=== PATIENT | male | born 1945 | race Caucasian/White ===

== ENCOUNTER 2017-01-27 18:35 | Emergency (ER) | payer MEDICARE, OTHER ==
[~2017-01-27] VITALS: Ht 172.7 cm; Wt 108.4 kg
[~2017-01-27 18:35] MED LIST: ALLO300T2; DIGO0.1262; EPLE50TA9 PO; GLIP-110 PO; INSUINJ49 SC; IRONTAB35 PO; ISOS10TA14 PO; MAGN400C3 PO; POTA-167 PO; SOTA80TA PO; TORS20TA20 PO
[2017-01-27 19:03] VITALS: BP 105/54
[2017-01-27 19:49] LABS: Basophils # (auto) 0 uL; Basophils % (auto) 0.4 % (0.0-2.0); Eosinophils # (auto) 0.3 uL; Hematocrit 45.3 % (41.0-53.0); Hemoglobin 15.3 g/dL (13.5-17.5); Lymphocytes # (auto) 1.9 uL; Lymphocytes % (auto) 20.8 % (10.0-50.0); Mean Corpuscular Hemoglobin 32.4 pg (28.0-32.0); Mean Corpuscular Hgb Conc. 33.7 g/dL (32.0-36.0); Mean Corpuscular Volume 96.1 fL (80.0-100.0); Mean Platelet Volume 11.2 fL (7.4-10.4); Monocytes # (auto) 0.7 uL; Monocytes % (auto) 7.8 % (0.0-12.0); Neutrophils # (auto) 6.2 uL; Platelet Count (auto) 151 10^3/uL (140-450); Red Cell Distribution Width 13.8 % (11.6-16.0); White Blood Cell 9.2 10^3/uL (4.4-10.8)
[2017-01-27 20:04] LABS: Albumin 3.8 g/dL (3.4-5.0); BUN/Creatinine Ratio 28.6; Bilirubin, Total 1.2 mg/dL (0.2-1.0); Calcium 8.9 mg/dL (8.5-10.1); Potassium 3.8 mmol/L (3.5-5.1)
== END 2017-01-27 20:57 | disposition left against medical advice (07) ==
LOC: ER 18:39
DX: R53.1 Weakness (principal); R51 Headache; Z53.21 Procedure and treatment not carried out due to patient leaving prior to being seen by health care provider
CPT/HCPCS: 36415; 70450; 80053; 82962; 84484; 85025; 93005

== ENCOUNTER → 2017-02-21 | Outpatient (CLI) | payer MEDICARE, OTHER ==
[~2017-02-21] VITALS: Ht 1 cm; Wt 0.5 kg
[~2017-02-21] MED LIST changes: +MAGNESIUM SULFATE 1GM/100ML 100 ML IV ONE; +MAGNESIUM SULFATE 1GM/100ML 100 ML IV SCH; +MAGNESIUM SULFATE 1GM/100ML 200 ML IV ONE; +SODIUM CHLORIDE 0.9% 500 ML IV SCH
[2017-02-21 16:00] VITALS: BP 99/62
[2017-02-21 17:50] VITALS: BP 94/51
== END | disposition home or self-care (01) ==
LOC: CHF HDHVI 16:04
PROVIDERS: ATTEND Internal Medicine Cardiovascular Disease
DX: E86.0 Dehydration (principal); I25.10 Atherosclerotic heart disease of native coronary artery without angina pectoris; R19.7 Diarrhea, unspecified; E83.42 Hypomagnesemia
CPT/HCPCS: 96365; G0463; J3475; 96360; 96361; 96367

== ENCOUNTER → 2017-02-22 | Outpatient (CLI) | payer MEDICARE, OTHER ==
[~2017-02-22] VITALS: Ht 165.1 cm; Wt 106.1 kg
[~2017-02-22] MED LIST changes: -MAGNESIUM SULFATE 1GM/100ML 100 ML IV ONE; +MVI in SODIUM CHLORIDE 0.9% 1,010 ML IV ONE; +MVI in SODIUM CHLORIDE 0.9% 1,010 ML ONE; -SODIUM CHLORIDE 0.9% 500 ML IV SCH
[2017-02-22 15:25] VITALS: BP 96/56
== END | disposition home or self-care (01) ==
LOC: CHF HDHVI 11:04
PROVIDERS: ATTEND Internal Medicine Cardiovascular Disease
DX: I11.0 Hypertensive heart disease with heart failure (principal); I50.9 Heart failure, unspecified; D64.9 Anemia, unspecified
CPT/HCPCS: 96361; 96365; 96367; G0463; J3411; J3475; 96360

== ENCOUNTER → 2017-03-01 | Outpatient (CLI) | payer MEDICARE, OTHER ==
[~2017-03-01] MED LIST changes: +MAGNESIUM SULFATE 1GM/100ML 100 ML IV ONE; -MAGNESIUM SULFATE 1GM/100ML 100 ML IV SCH; -MVI in SODIUM CHLORIDE 0.9% 1,010 ML IV ONE; -MVI in SODIUM CHLORIDE 0.9% 1,010 ML ONE; +SODIUM CHLORIDE 0.9% 1,000 ML IV SCH
[2017-03-01 12:45] VITALS: BP 98/56
[2017-03-01 16:30] VITALS: BP 120/61
== END | disposition home or self-care (01) ==
LOC: CHF HDHVI 12:40
PROVIDERS: ATTEND Internal Medicine Cardiovascular Disease
DX: I11.0 Hypertensive heart disease with heart failure (principal); I50.9 Heart failure, unspecified; D64.9 Anemia, unspecified; I25.10 Atherosclerotic heart disease of native coronary artery without angina pectoris; R53.1 Weakness
CPT/HCPCS: 96365; 96366; G0463; J3475; 96360; 96361

== ENCOUNTER → 2017-03-11 | Outpatient (CLI) | payer MEDICARE, OTHER ==
[~2017-03-11] MED LIST changes: -MAGNESIUM SULFATE 1GM/100ML 200 ML IV ONE; +SODIUM CHLORIDE 0.9% 1,000 ML IV ONE; -SODIUM CHLORIDE 0.9% 1,000 ML IV SCH
[2017-03-11 12:15] VITALS: BP 98/45
[2017-03-11 15:40] VITALS: BP 101/56
[2017-03-11 17:03] LABS: BUN/Creatinine Ratio 17.1; Calcium 8.9 mg/dL (8.5-10.1); Magnesium 2.2 mg/dL (1.6-2.6); Potassium 3.8 mmol/L (3.5-5.1)
== END | disposition home or self-care (01) ==
LOC: CHF HDHVI 12:22
PROVIDERS: ATTEND Internal Medicine Cardiovascular Disease
DX: E11.9 Type 2 diabetes mellitus without complications (principal); I10 Essential (primary) hypertension; E83.42 Hypomagnesemia
CPT/HCPCS: 36415; 80048; 83036; 83735

== ENCOUNTER → 2017-09-20 | Outpatient (CLI) | payer MEDICARE ==
[~2017-09-20] MED LIST changes: +ADENOSINE 88 MG in GIVE UN-DILUTED 0 ML IV ONE; +ADENOSINE 90 MG/30 ML INJ IV ONE; -MAGNESIUM SULFATE 1GM/100ML 100 ML IV ONE; -SODIUM CHLORIDE 0.9% 1,000 ML IV ONE
== END | disposition home or self-care (01) ==
LOC: Rad HDHVI 09:29
PROVIDERS: ATTEND Internal Medicine Cardiovascular Disease
DX: I36.1 Nonrheumatic tricuspid (valve) insufficiency (principal); E11.9 Type 2 diabetes mellitus without complications; I25.5 Ischemic cardiomyopathy; I50.23 Acute on chronic systolic (congestive) heart failure; F03.90 Unspecified dementia, unspecified severity, without behavioral disturbance, psychotic disturbance, mood disturbance, and anxiety; K52.9 Noninfective gastroenteritis and colitis, unspecified; Z95.1 Presence of aortocoronary bypass graft
CPT/HCPCS: 78452; 93005; 93306; 96374; 96375; A9500; J0153

== ENCOUNTER → 2018-04-26 | Outpatient (CLI) | payer MEDICARE ==
[~2018-04-26] MED LIST changes: -ADENOSINE 88 MG in GIVE UN-DILUTED 0 ML IV ONE; -ADENOSINE 90 MG/30 ML INJ IV ONE
[2018-04-26 16:03] LABS: Urine Bacteria NONE SEEN /hpf (None Seen); Urine Blood Negative /uL (Negative); Urine Hyaline Cast FEW /lpf (0 - 2); Urine Specific Gravity 1.007 (1.001-1.035); Urine WBC <1 /hpf (0 - 3)
[2018-04-26 16:11] LABS: BUN/Creatinine Ratio 24.2; Calcium 9.5 mg/dL (8.5-10.1); Magnesium 1.9 mg/dL (1.6-2.6); Potassium 4.2 mmol/L (3.5-5.1)
== END | disposition home or self-care (01) ==
LOC: LAB 13:07
PROVIDERS: ATTEND Internal Medicine Cardiovascular Disease
DX: E83.40 Disorders of magnesium metabolism, unspecified (principal); I10 Essential (primary) hypertension; N39.0 Urinary tract infection, site not specified
CPT/HCPCS: 36415; 80048; 81001; 83735; 87086

== ENCOUNTER → 2018-06-13 | Outpatient (CLI) | payer MEDICARE | END | disposition home or self-care (01) | LOC: LAB 11:15 | PROVIDERS: ATTEND Internal Medicine Cardiovascular Disease | DX: D68.62 Lupus anticoagulant syndrome (principal); Z79.899 Other long term (current) drug therapy; Z88.0 Allergy status to penicillin; Z88.8 Allergy status to other drugs, medicaments and biological substances | CPT/HCPCS: 85613; 85670; 85705; 85732 ==

== ENCOUNTER → 2018-09-27 | Outpatient (CLI) | payer MEDICARE | END | disposition home or self-care (01) | LOC: Rad HDHVI 15:26 | PROVIDERS: ATTEND Internal Medicine Cardiovascular Disease | DX: Z01.810 Encounter for preprocedural cardiovascular examination (principal); I35.1 Nonrheumatic aortic (valve) insufficiency; R07.89 Other chest pain; I25.5 Ischemic cardiomyopathy; E11.9 Type 2 diabetes mellitus without complications; I11.0 Hypertensive heart disease with heart failure; I50.9 Heart failure, unspecified; Z95.1 Presence of aortocoronary bypass graft | CPT/HCPCS: 93306 ==

== ENCOUNTER → 2018-10-10 | Outpatient (CLI) | payer MEDICARE | END | disposition home or self-care (01) | LOC: LAB 12:23 | PROVIDERS: ATTEND Internal Medicine Cardiovascular Disease | DX: E29.1 Testicular hypofunction (principal); C61 Malignant neoplasm of prostate; E03.9 Hypothyroidism, unspecified | CPT/HCPCS: 36415; 84153; 84403; 84443 ==

== ENCOUNTER → 2019-10-01 | Outpatient (CLI) | payer MEDICARE ==
[~2019-10-01] MED LIST changes: +EPLE50TA3 PO; -EPLE50TA9 PO
== END | disposition home or self-care (01) ==
LOC: Rad HDHVI 10:19
PROVIDERS: ATTEND Internal Medicine Cardiovascular Disease
DX: J32.0 Chronic maxillary sinusitis (principal); G31.9 Degenerative disease of nervous system, unspecified; I99.8 Other disorder of circulatory system
CPT/HCPCS: 70450

== ENCOUNTER → 2019-12-10 | Outpatient (CLI) | payer MEDICARE ==
[2019-12-10 15:55] VITALS: BP_SYST 106; BP_SYST 116; BP_DIAS 55
--- NOTE | 2019-12-10 15:55 | NUR ---
Signature Attestation Statement: I ANGELY ROTH performed this procedure EECP on this patient. Addendum: 12/10/19 at 1555 by ANGELY ROTH [email or web address] Amended: Links added.
--- NOTE | 2019-12-10 15:56 | NUR ---
Signature Attestation Statement: I ANGELY ROTH performed this procedure EECP on this patient. Addendum: 12/10/19 at 1557 by ANGELY ROTH [email or web address] Amended: Links added.
--- NOTE | 2019-12-10 15:56 | NUR ---
Signature Attestation Statement: I ANGELY ROTH performed this procedure EECP on this patient. Addendum: 12/10/19 at 1556 by ANGELY ROTH [email or web address] Amended: Links added.
--- NOTE | 2019-12-10 16:04 | NUR ---
Signature Attestation Statement: I ANGELY ROTH performed this procedure EECP on this patient. Addendum: 12/10/19 at 1605 by ANGELY ROTH [email or web address] Amended: Links added.
== END | disposition home or self-care (01) ==
LOC: CHF HDHVI 13:34
PROVIDERS: ATTEND Internal Medicine Cardiovascular Disease
DX: E11.42 Type 2 diabetes mellitus with diabetic polyneuropathy (principal); I50.32 Chronic diastolic (congestive) heart failure; R81 Glycosuria; I48.91 Unspecified atrial fibrillation; Z95.1 Presence of aortocoronary bypass graft; Z98.61 Coronary angioplasty status; Z95.0 Presence of cardiac pacemaker; I25.708 Atherosclerosis of coronary artery bypass graft(s), unspecified, with other forms of angina pectoris
CPT/HCPCS: G0166

== ENCOUNTER → 2019-12-14 | Outpatient (CLI) | payer MEDICARE ==
[2019-12-14 14:19] VITALS: BP 126/70
[2019-12-14 14:42] VITALS: BP 112/64
== END | disposition home or self-care (01) ==
LOC: CHF HDHVI 13:15
PROVIDERS: ATTEND Internal Medicine Cardiovascular Disease
DX: I25.708 Atherosclerosis of coronary artery bypass graft(s), unspecified, with other forms of angina pectoris (principal); I50.9 Heart failure, unspecified; E11.9 Type 2 diabetes mellitus without complications; I25.2 Old myocardial infarction; G47.33 Obstructive sleep apnea (adult) (pediatric); E66.01 Morbid (severe) obesity due to excess calories; Z95.5 Presence of coronary angioplasty implant and graft; Z95.1 Presence of aortocoronary bypass graft; Z95.2 Presence of prosthetic heart valve
CPT/HCPCS: G0166

== ENCOUNTER → 2019-12-17 | Outpatient (CLI) | payer MEDICARE ==
[2019-12-17 14:47] VITALS: BP 87/52
--- NOTE | 2019-12-17 14:47 | NUR ---
Signature Attestation Statement: I ANGELY ROTH performed this procedure EECP on this patient. Addendum: 12/17/19 at 1447 by ANGELY ROTH [email or web address] Amended: Links added.
--- NOTE | 2019-12-17 14:48 | NUR ---
Signature Attestation Statement: I ANGELY ROTH performed this procedure EECP on this patient. Addendum: 12/17/19 at 1448 by ANGEYL ROTH [email or web address] Amended: Links added.
[2019-12-17 15:11] VITALS: BP 96/57
--- NOTE | 2019-12-17 15:11 | NUR ---
Signature Attestation Statement: I ANGELY ROTH performed this procedure EECP on this patient. Addendum: 12/17/19 at 1511 by ANGELY ROTH [email or web address] Amended: Links added.
--- NOTE | 2019-12-17 15:12 | NUR ---
Signature Attestation Statement: I ANGELY ROTH performed this procedure EECP on this patient. Addendum: 12/17/19 at 1512 by ANGELY ROTH [email or web address] Amended: Links added.
== END | disposition home or self-care (01) ==
LOC: CHF HDHVI 13:45
PROVIDERS: ATTEND Internal Medicine Cardiovascular Disease
DX: I11.0 Hypertensive heart disease with heart failure (principal); I50.23 Acute on chronic systolic (congestive) heart failure; E11.21 Type 2 diabetes mellitus with diabetic nephropathy; E11.42 Type 2 diabetes mellitus with diabetic polyneuropathy; E11.319 Type 2 diabetes mellitus with unspecified diabetic retinopathy without macular edema; E11.52 Type 2 diabetes mellitus with diabetic peripheral angiopathy with gangrene; I25.5 Ischemic cardiomyopathy; P08.0 Exceptionally large newborn baby; A07.9 Protozoal intestinal disease, unspecified; I25.2 Old myocardial infarction; I25.708 Atherosclerosis of coronary artery bypass graft(s), unspecified, with other forms of angina pectoris; D57.3 Sickle-cell trait; R82.998 Other abnormal findings in urine; D60.9 Acquired pure red cell aplasia, unspecified; J44.9 Chronic obstructive pulmonary disease, unspecified; R79.9 Abnormal finding of blood chemistry, unspecified; Z86.73 Personal history of transient ischemic attack (TIA), and cerebral infarction without residual deficits; Z98.61 Coronary angioplasty status; Z95.1 Presence of aortocoronary bypass graft
CPT/HCPCS: G0166

== ENCOUNTER → 2019-12-19 | Outpatient (CLI) | payer MEDICARE ==
[2019-12-19 14:24] VITALS: BP 96/58
[2019-12-19 15:14] VITALS: BP 94/60
[2019-12-19 15:15] VITALS: BP 94/60
== END | disposition home or self-care (01) ==
LOC: CHF HDHVI 13:27
PROVIDERS: ATTEND Internal Medicine Cardiovascular Disease
DX: I25.708 Atherosclerosis of coronary artery bypass graft(s), unspecified, with other forms of angina pectoris (principal); E11.21 Type 2 diabetes mellitus with diabetic nephropathy; E11.42 Type 2 diabetes mellitus with diabetic polyneuropathy; E11.319 Type 2 diabetes mellitus with unspecified diabetic retinopathy without macular edema; I50.23 Acute on chronic systolic (congestive) heart failure; I25.5 Ischemic cardiomyopathy; I73.9 Peripheral vascular disease, unspecified; Z86.73 Personal history of transient ischemic attack (TIA), and cerebral infarction without residual deficits; Z95.5 Presence of coronary angioplasty implant and graft; Z95.1 Presence of aortocoronary bypass graft
CPT/HCPCS: G0166

== ENCOUNTER → 2019-12-21 | Outpatient (CLI) | payer MEDICARE ==
[2019-12-21 15:02] VITALS: BP 102/61
[2019-12-21 15:04] VITALS: BP 106/64
== END | disposition home or self-care (01) ==
LOC: CHF HDHVI 13:43
PROVIDERS: ATTEND Internal Medicine Cardiovascular Disease
DX: I25.708 Atherosclerosis of coronary artery bypass graft(s), unspecified, with other forms of angina pectoris (principal); E11.21 Type 2 diabetes mellitus with diabetic nephropathy; E11.42 Type 2 diabetes mellitus with diabetic polyneuropathy; E11.319 Type 2 diabetes mellitus with unspecified diabetic retinopathy without macular edema; I50.23 Acute on chronic systolic (congestive) heart failure; I50.1 Left ventricular failure, unspecified; I25.5 Ischemic cardiomyopathy; I73.9 Peripheral vascular disease, unspecified; R68.89 Other general symptoms and signs; Z98.61 Coronary angioplasty status; Z95.1 Presence of aortocoronary bypass graft; Z86.73 Personal history of transient ischemic attack (TIA), and cerebral infarction without residual deficits
CPT/HCPCS: G0166

== ENCOUNTER → 2019-12-24 | Outpatient (CLI) | payer MEDICARE ==
[~2019-12-24] MED LIST changes: +IOHEXOL 300 MG/ML 100ML BOTTLE IJ ONE; +LIDOCAINE 2%HCL (LOCAL ANESTH.) INJ 20ML MDV ONE
[2019-12-24 14:03] VITALS: BP 109/69
--- NOTE | 2019-12-24 14:03 | NUR ---
Signature Attestation Statement: I ANGELY ROTH performed this procedure EECP on this patient. Addendum: 12/24/19 at 1403 by ANGELY ROTH [email or web address] Amended: Links added.
--- NOTE | 2019-12-24 14:18 | NUR ---
Signature Attestation Statement: I ANGELY ROTH performed this procedure EECP on this patient. Addendum: 12/24/19 at 1418 by ANGELY ROTH [email or web address] Amended: Links added.
[2019-12-24 14:34] VITALS: BP 111/62
--- NOTE | 2019-12-24 14:34 | NUR ---
Signature Attestation Statement: I ANGELY ROTH performed this procedure EECP on this patient. Addendum: 12/24/19 at 1434 by ANGELY ROTH [email or web address] Amended: Links added.
--- NOTE | 2019-12-24 14:49 | NUR ---
Signature Attestation Statement: I ANGELY ROTH performed this procedure EECP on this patient. Addendum: 12/24/19 at 1450 by ANGELY ROTH [email or web address] Amended: Links added.
== END | disposition home or self-care (01) ==
LOC: CHF HDHVI 13:33
PROVIDERS: ATTEND Internal Medicine Cardiovascular Disease
DX: I50.23 Acute on chronic systolic (congestive) heart failure (principal); I25.5 Ischemic cardiomyopathy; E11.21 Type 2 diabetes mellitus with diabetic nephropathy; E11.42 Type 2 diabetes mellitus with diabetic polyneuropathy; E11.319 Type 2 diabetes mellitus with unspecified diabetic retinopathy without macular edema; I73.9 Peripheral vascular disease, unspecified; I20.9 Angina pectoris, unspecified; Z86.73 Personal history of transient ischemic attack (TIA), and cerebral infarction without residual deficits; Z95.5 Presence of coronary angioplasty implant and graft; Z95.1 Presence of aortocoronary bypass graft
CPT/HCPCS: G0166

== ENCOUNTER → 2019-12-26 | Outpatient (CLI) | payer MEDICARE ==
[~2019-12-26] MED LIST changes: -IOHEXOL 300 MG/ML 100ML BOTTLE IJ ONE; -LIDOCAINE 2%HCL (LOCAL ANESTH.) INJ 20ML MDV ONE
[2019-12-26 14:11] VITALS: BP 124/71
[2019-12-26 14:47] VITALS: BP 111/67
== END | disposition home or self-care (01) ==
LOC: CHF HDHVI 13:32
PROVIDERS: ATTEND Internal Medicine Cardiovascular Disease
DX: I25.708 Atherosclerosis of coronary artery bypass graft(s), unspecified, with other forms of angina pectoris (principal); I50.23 Acute on chronic systolic (congestive) heart failure; I25.5 Ischemic cardiomyopathy; E11.319 Type 2 diabetes mellitus with unspecified diabetic retinopathy without macular edema; I73.9 Peripheral vascular disease, unspecified; Z86.73 Personal history of transient ischemic attack (TIA), and cerebral infarction without residual deficits; E11.42 Type 2 diabetes mellitus with diabetic polyneuropathy; E11.21 Type 2 diabetes mellitus with diabetic nephropathy
CPT/HCPCS: G0166

== ENCOUNTER → 2019-12-31 | Outpatient (CLI) | payer MEDICARE ==
[2019-12-31 14:15] VITALS: BP 106/61
--- NOTE | 2019-12-31 14:15 | NUR ---
Signature Attestation Statement: I ANGELY ROTH performed this procedure EECP on this patient. Addendum: 12/31/19 at 1415 by ANGELY ROTH [email or web address] Amended: Links added.
--- NOTE | 2019-12-31 14:16 | NUR ---
Signature Attestation Statement: I ANGELY ROTH performed this procedure EECP on this patient. Addendum: 12/31/19 at 1416 by ANGELY ROTH [email or web address] Amended: Links added.
[2019-12-31 14:43] VITALS: BP 102/60
--- NOTE | 2019-12-31 14:43 | NUR ---
Signature Attestation Statement: I ANGELY ROTH performed this procedure EECP on this patient. Addendum: 12/31/19 at 1443 by ANGELY ROTH [email or web address] Amended: Links added.
--- NOTE | 2019-12-31 14:58 | NUR ---
Signature Attestation Statement: I ANGELY ROTH performed this procedure EECP on this patient. Addendum: 12/31/19 at 1458 by ANGELY ROTH [email or web address] Amended: Links added.
== END | disposition home or self-care (01) ==
LOC: CHF HDHVI 13:29
PROVIDERS: ATTEND Internal Medicine Cardiovascular Disease
DX: I25.708 Atherosclerosis of coronary artery bypass graft(s), unspecified, with other forms of angina pectoris (principal); E11.21 Type 2 diabetes mellitus with diabetic nephropathy; E11.42 Type 2 diabetes mellitus with diabetic polyneuropathy; E11.319 Type 2 diabetes mellitus with unspecified diabetic retinopathy without macular edema; I50.23 Acute on chronic systolic (congestive) heart failure; I25.5 Ischemic cardiomyopathy; I73.9 Peripheral vascular disease, unspecified; Z86.73 Personal history of transient ischemic attack (TIA), and cerebral infarction without residual deficits; Z98.61 Coronary angioplasty status
CPT/HCPCS: G0166

== ENCOUNTER → 2020-01-02 | Outpatient (CLI) | payer MEDICARE ==
[~2020-01-02] MED LIST changes: +ceFAZolin 1GM VL ONE
[2020-01-02 14:07] VITALS: BP 107/66
--- NOTE | 2020-01-02 14:08 | NUR ---
Signature Attestation Statement: I ANGELY ROTH performed this procedure EECP on this patient. Addendum: 01/02/20 at 1408 by ANGELY ROTH [email or web address] Amended: Links added.
--- NOTE | 2020-01-02 14:09 | NUR ---
Signature Attestation Statement: I ANGELY ROTH performed this procedure EECP on this patient. Addendum: 01/02/20 at 1410 by ANGELY ROTH [email or web address] Amended: Links added.
--- NOTE | 2020-01-02 14:40 | NUR ---
Signature Attestation Statement: I ANGELY ROTH performed this procedure EECP on this patient. Addendum: 01/02/20 at 1441 by ANGELY ROTH [email or web address] Amended: Links added.
[2020-01-02 14:41] VITALS: BP 122/65
--- NOTE | 2020-01-02 14:52 | NUR ---
Signature Attestation Statement: I ANGELY ROTH performed this procedure EECP on this patient. Addendum: 01/02/20 at 1452 by ANGELY ROTH [email or web address] Amended: Links added.
== END | disposition home or self-care (01) ==
LOC: CHF HDHVI 13:28
PROVIDERS: ATTEND Internal Medicine Cardiovascular Disease
DX: I25.708 Atherosclerosis of coronary artery bypass graft(s), unspecified, with other forms of angina pectoris (principal); I50.23 Acute on chronic systolic (congestive) heart failure; I25.5 Ischemic cardiomyopathy; E11.21 Type 2 diabetes mellitus with diabetic nephropathy; E11.42 Type 2 diabetes mellitus with diabetic polyneuropathy; E11.319 Type 2 diabetes mellitus with unspecified diabetic retinopathy without macular edema; I73.9 Peripheral vascular disease, unspecified; Z86.73 Personal history of transient ischemic attack (TIA), and cerebral infarction without residual deficits
CPT/HCPCS: G0166; J0690

== ENCOUNTER → 2020-01-04 | Outpatient (CLI) | payer MEDICARE ==
[~2020-01-04] MED LIST changes: -ceFAZolin 1GM VL ONE
[2020-01-04 14:00] VITALS: BP 108/64
[2020-01-04 14:49] VITALS: BP 101/57
== END | disposition home or self-care (01) ==
LOC: CHF HDHVI 13:45
PROVIDERS: ATTEND Internal Medicine Cardiovascular Disease
DX: I25.708 Atherosclerosis of coronary artery bypass graft(s), unspecified, with other forms of angina pectoris (principal); I50.23 Acute on chronic systolic (congestive) heart failure; I25.5 Ischemic cardiomyopathy; E11.21 Type 2 diabetes mellitus with diabetic nephropathy; E11.42 Type 2 diabetes mellitus with diabetic polyneuropathy; E11.319 Type 2 diabetes mellitus with unspecified diabetic retinopathy without macular edema; I73.9 Peripheral vascular disease, unspecified; I63.9 Cerebral infarction, unspecified
CPT/HCPCS: G0166

== ENCOUNTER → 2020-01-07 | Outpatient (CLI) | payer MEDICARE ==
--- NOTE | 2020-01-07 14:12 | NUR ---
Signature Attestation Statement: I ANGELY ROTH performed this procedure EECP on this patient. Addendum: 01/07/20 at 1413 by ANGELY ROTH [email or web address] Amended: Links added.
[2020-01-07 14:13] VITALS: BP 131/73
[2020-01-07 14:43] VITALS: BP 111/67
--- NOTE | 2020-01-07 14:43 | NUR ---
Signature Attestation Statement: I ANGELY ROTH performed this procedure EECP on this patient. Addendum: 01/07/20 at 1443 by ANGELY ROTH [email or web address] Amended: Links added.
--- NOTE | 2020-01-07 14:55 | NUR ---
Signature Attestation Statement: I ANGELY ROTH performed this procedure EECP on this patient. Addendum: 01/07/20 at 1455 by ANGELY ROTH [email or web address] Amended: Links added.
== END | disposition home or self-care (01) ==
LOC: CHF HDHVI 13:31
PROVIDERS: ATTEND Internal Medicine Cardiovascular Disease
DX: I25.708 Atherosclerosis of coronary artery bypass graft(s), unspecified, with other forms of angina pectoris (principal); E11.21 Type 2 diabetes mellitus with diabetic nephropathy; E11.42 Type 2 diabetes mellitus with diabetic polyneuropathy; E11.319 Type 2 diabetes mellitus with unspecified diabetic retinopathy without macular edema; I50.23 Acute on chronic systolic (congestive) heart failure; I25.5 Ischemic cardiomyopathy; I73.9 Peripheral vascular disease, unspecified; Z86.73 Personal history of transient ischemic attack (TIA), and cerebral infarction without residual deficits
CPT/HCPCS: G0166

== ENCOUNTER → 2020-01-09 | Outpatient (CLI) | payer MEDICARE ==
[2020-01-09 14:08] VITALS: BP 117/68
--- NOTE | 2020-01-09 14:08 | NUR ---
Signature Attestation Statement: I ANGELY ROTH performed this procedure EECP on this patient. Addendum: 01/09/20 at 1409 by ANGELY ROTH [email or web address] Amended: Links added.
--- NOTE | 2020-01-09 14:09 | NUR ---
Signature Attestation Statement: I ANGELY ROTH performed this procedure EECP on this patient. Addendum: 01/09/20 at 1410 by ANGELY ROTH [email or web address] Amended: Links added.
[2020-01-09 14:45] VITALS: BP 119/68
--- NOTE | 2020-01-09 14:45 | NUR ---
Signature Attestation Statement: I ANGELY ROTH performed this procedure EECP on this patient. Addendum: 01/09/20 at 1445 by ANGELY ROTH [email or web address] Amended: Links added.
--- NOTE | 2020-01-09 14:54 | NUR ---
Signature Attestation Statement: I ANGELY ROTH performed this procedure EECP on this patient. Addendum: 01/09/20 at 1455 by ANGELY ROTH [email or web address] Amended: Links added.
== END | disposition home or self-care (01) ==
LOC: CHF HDHVI 13:23
PROVIDERS: ATTEND Internal Medicine Cardiovascular Disease
DX: I25.708 Atherosclerosis of coronary artery bypass graft(s), unspecified, with other forms of angina pectoris (principal); I50.23 Acute on chronic systolic (congestive) heart failure; I25.5 Ischemic cardiomyopathy; E11.21 Type 2 diabetes mellitus with diabetic nephropathy; E11.42 Type 2 diabetes mellitus with diabetic polyneuropathy; E11.319 Type 2 diabetes mellitus with unspecified diabetic retinopathy without macular edema; I63.9 Cerebral infarction, unspecified; I73.9 Peripheral vascular disease, unspecified
CPT/HCPCS: G0166

== ENCOUNTER → 2020-01-11 | Outpatient (CLI) | payer MEDICARE ==
[2020-01-11 14:00] VITALS: BP 131/76
--- NOTE | 2020-01-11 14:01 | NUR ---
Signature Attestation Statement: I ANGELY ROTH performed this procedure EECP on this patient. Addendum: 01/11/20 at 1402 by ANGELY ROTH [email or web address] Amended: Links added.
--- NOTE | 2020-01-11 14:05 | NUR ---
Signature Attestation Statement: I ANGELY ROTH performed this procedure EECP on this patient. Addendum: 01/11/20 at 1405 by ANGELY ROTH [email or web address] Amended: Links added.
--- NOTE | 2020-01-11 14:38 | NUR ---
Signature Attestation Statement: I ANGELY ROTH performed this procedure EECP on this patient. Addendum: 01/11/20 at 1439 by ANGELY ROTH [email or web address] Amended: Links added.
[2020-01-11 14:39] VITALS: BP 114/68
--- NOTE | 2020-01-11 14:49 | NUR ---
Signature Attestation Statement: I ANGELY ROTH performed this procedure EECP on this patient. Addendum: 01/11/20 at 1449 by ANGELY ROTH [email or web address] Amended: Links added.
== END | disposition home or self-care (01) ==
LOC: CHF HDHVI 13:33
PROVIDERS: ATTEND Internal Medicine Cardiovascular Disease
DX: I25.708 Atherosclerosis of coronary artery bypass graft(s), unspecified, with other forms of angina pectoris (principal); I50.23 Acute on chronic systolic (congestive) heart failure; I25.5 Ischemic cardiomyopathy; E11.21 Type 2 diabetes mellitus with diabetic nephropathy; E11.42 Type 2 diabetes mellitus with diabetic polyneuropathy; E11.319 Type 2 diabetes mellitus with unspecified diabetic retinopathy without macular edema; I63.9 Cerebral infarction, unspecified; I73.9 Peripheral vascular disease, unspecified
CPT/HCPCS: G0166

== ENCOUNTER → 2020-05-01 | Outpatient (CLI) | payer MEDICARE ==
[~2020-05-01] MED LIST changes: +CYANOCOBALAMIN (B-12) 1000 MCG/1 ML VIAL IM ONE; +CYANOCOBALAMIN (B-12) 1000 MCG/1 ML VIAL ONE; +FUROSEMIDE 100 MG/10ML VIAL IV ONE; +FUROSEMIDE 40 MG/4 ML VIAL ONE; +POTASSIUM EFFERVESENT TAB 25 MEQ ONE; +POTASSIUM EFFERVESENT TAB 25 MEQ PO ONE
[2020-05-01 11:28] VITALS: BP 109/65
--- NOTE | 2020-05-01 11:28 | NUR ---
CLINIC PT ARRIVED TO THE CLINIC WITH ORDERS FROM MD FARRELL. Reginald/OX4, AMBULATORY WITH WALKER AND ESCORTED BY . PLACED RON BOOTS ON PT ON 04/30/20 BUT HE CUT THEM OFF PRIOR TO VISITING OFFICE. MD GARNETT
--- NOTE | 2020-05-01 11:59 | NUR ---
RON BOOTS APPLIED BY SEVERIANO THOMPSON
--- NOTE | 2020-05-01 12:05 | NUR ---
LABS FROM [facility] DATED 04/30/20 REVIEWED WITH PT. IMPROVED POTASSIUM LEVEL 4.3
--- NOTE | 2020-05-01 12:19 | NUR ---
LABS DRAWN AND SENT
[2020-05-01 12:32] VITALS: BP 115/64
--- NOTE | 2020-05-01 12:32 | NUR ---
Discharge Instructions See e-MAR for any mediations given with this visit. Patient education given on disease process. Patient verbalized understanding. Previous labs reviewed. Patient discharged in stable condition with after care instructions and follow up appointment. NOTE LASIX IVP ADMIN BY GEMA EMERSON VIT B12 ADMIN BY JIMI EMERSON R DELTOID LOT# [id number] EXP 08/27 POTASSIUM EFFERENT PO ADMIN BY JIMI EMERSON
== END | disposition home or self-care (01) ==
LOC: CHF HDHVI 11:17
PROVIDERS: ATTEND Internal Medicine Cardiovascular Disease
DX: K90.9 Intestinal malabsorption, unspecified (principal); E83.40 Disorders of magnesium metabolism, unspecified
CPT/HCPCS: 36415; 82306; 83735; 96372; 96374; G0463; J1940; J3420

== ENCOUNTER → 2021-01-29 | Outpatient (CLI) | payer MEDICARE ==
[~2021-01-29] MED LIST changes: -CYANOCOBALAMIN (B-12) 1000 MCG/1 ML VIAL IM ONE; -CYANOCOBALAMIN (B-12) 1000 MCG/1 ML VIAL ONE; -FUROSEMIDE 100 MG/10ML VIAL IV ONE; -FUROSEMIDE 40 MG/4 ML VIAL ONE; -POTASSIUM EFFERVESENT TAB 25 MEQ ONE; -POTASSIUM EFFERVESENT TAB 25 MEQ PO ONE
== END | disposition home or self-care (01) ==
LOC: Rad HDHVI 15:05
PROVIDERS: ATTEND Internal Medicine Cardiovascular Disease
DX: I08.2 Rheumatic disorders of both aortic and tricuspid valves (principal); I25.5 Ischemic cardiomyopathy; R06.02 Shortness of breath
CPT/HCPCS: 93306

== ENCOUNTER → 2021-02-03 | Outpatient (CLI) | payer MEDICARE ==
[~2021-02-03] VITALS: Ht 172.7 cm; Wt 84.4 kg
[~2021-02-03] MED LIST changes: +ADENOSINE 71 MG in GIVE UN-DILUTED 0 ML IV ONE; +ADENOSINE 90 MG/30 ML INJ IV ONE
== END | disposition home or self-care (01) ==
LOC: Rad HDHVI 12:59
PROVIDERS: ATTEND Internal Medicine Cardiovascular Disease
DX: I11.0 Hypertensive heart disease with heart failure (principal); I50.43 Acute on chronic combined systolic (congestive) and diastolic (congestive) heart failure; I25.5 Ischemic cardiomyopathy; R06.02 Shortness of breath; E78.5 Hyperlipidemia, unspecified; E11.9 Type 2 diabetes mellitus without complications; Z95.0 Presence of cardiac pacemaker
CPT/HCPCS: 78452; 93005; 96374; 96375; A9500; J0153

== ENCOUNTER → 2022-01-04 | Outpatient (CLI) | payer MEDICARE ==
[~2022-01-04] MED LIST changes: -ADENOSINE 71 MG in GIVE UN-DILUTED 0 ML IV ONE; -ADENOSINE 90 MG/30 ML INJ IV ONE
== END | disposition home or self-care (01) ==
LOC: Rad HDHVI 12:53
PROVIDERS: ATTEND Internal Medicine Cardiovascular Disease
DX: I08.3 Combined rheumatic disorders of mitral, aortic and tricuspid valves (principal); R00.2 Palpitations; R06.02 Shortness of breath
CPT/HCPCS: 93306

== ENCOUNTER → 2022-02-22 | Outpatient (CLI) | payer MEDICARE | END | disposition home or self-care (01) | LOC: Rad HDHVI 13:01 | PROVIDERS: ATTEND Internal Medicine Cardiovascular Disease | DX: I73.9 Peripheral vascular disease, unspecified (principal); M79.89 Other specified soft tissue disorders | CPT/HCPCS: 93925 ==

== ENCOUNTER → 2023-01-18 | Outpatient (CLI) | payer MEDICARE | END | disposition home or self-care (01) | LOC: Rad HDHVI 12:50 | PROVIDERS: ATTEND Internal Medicine Cardiovascular Disease | DX: I08.3 Combined rheumatic disorders of mitral, aortic and tricuspid valves (principal); R06.02 Shortness of breath; E78.5 Hyperlipidemia, unspecified | CPT/HCPCS: 93306 ==

== ENCOUNTER → 2023-02-07 | Outpatient (CLI) | payer MEDICARE ==
[~2023-02-07] VITALS: Ht 172.7 cm; Wt 68.0 kg
[~2023-02-07] MED LIST changes: +ADENOSINE 57 MG in GIVE UN-DILUTED 0 ML IV ONE; +ADENOSINE 90 MG/30 ML INJ IV ONE
== END | disposition home or self-care (01) ==
LOC: Rad HDHVI 12:54
PROVIDERS: ATTEND Internal Medicine Cardiovascular Disease
DX: I13.0 Hypertensive heart and chronic kidney disease with heart failure and stage 1 through stage 4 chronic kidney disease, or unspecified chronic kidney disease (principal); E11.22 Type 2 diabetes mellitus with diabetic chronic kidney disease; I50.23 Acute on chronic systolic (congestive) heart failure; N18.30 Chronic kidney disease, stage 3 unspecified; R42 Dizziness and giddiness; I25.5 Ischemic cardiomyopathy; R06.02 Shortness of breath; I95.9 Hypotension, unspecified; Z95.0 Presence of cardiac pacemaker
CPT/HCPCS: 78452; 93005; 96374; 96375; A9500; J0153

== ENCOUNTER 2023-08-22 02:52 | Inpatient (IN) | payer MEDICARE ==
[~2023-08-22] VITALS: Ht 162.6 cm; Wt 90.0 kg
[~2023-08-22 02:52] MED LIST changes: -ADENOSINE 57 MG in GIVE UN-DILUTED 0 ML IV ONE; -ADENOSINE 90 MG/30 ML INJ IV ONE; -POTA-167 PO; +POTA-211 PO
[2023-08-23 19:46] VITALS: BP 98/60; PULSE 75; RESP 20; TEMP 97.6; O2SAT 97
[2023-08-23 20:00] VITALS: PULSE 75; PULSE 87; RESP 18; O2SAT 97; O2SAT 98
[2023-08-23] MEDS ORDERED: TORS20TA19 GT (21:21)
[2023-08-23] MEDS ORDERED: GLIP5TAB12 PO (21:21)
[2023-08-23] MEDS ORDERED: EPLE50TA3 PO (21:21)
[2023-08-23] MEDS ORDERED: INSU75IN2 SC (21:21)
[2023-08-23] MEDS ORDERED: DIGO0.12 PO (21:21)
[2023-08-23] MEDS ORDERED: ATO40T PO (21:21)
[2023-08-23] MEDS ORDERED: TAMS-35 PO (21:21)
[2023-08-23] MEDS ORDERED: FINA5TAB4 PO (21:21)
[2023-08-23] MEDS ORDERED: MESA1.2T PO (21:21)
[2023-08-23] MEDS ORDERED: LEV50T PO (21:25)
[2023-08-23] MEDS ORDERED: MESA10003 PR (21:29)
[2023-08-23] MEDS ORDERED: TEMA15CA2 PO (21:29)
[2023-08-23] MEDS ORDERED: METO25TA93 PO (21:33)
[2023-08-23] MEDS ORDERED: POTA-220 PO (21:33)
[2023-08-23] MEDS ORDERED: MAGNTAB16 OR (21:33)
[2023-08-23] MEDS ORDERED: LEVO25TA6 PO (21:51)
[2023-08-23] MEDS ORDERED: MIRA50TA PO (21:51)
[2023-08-23] MEDS ORDERED: DEXTROSE (50%) 50ML SYRG IV PRN (23:00)
[2023-08-23 23:44] VITALS: BP 100/57; PULSE 77; RESP 19; TEMP 97.7; O2SAT 99
[2023-08-24] VITALS (7 sets, daily range): BP systolic 98–121; BP diastolic 49–66; PULSE 72–86; RESP 15–20; TEMP 97.4–98.1; O2SAT 93–98
[2023-08-24] MEDS: DOBUTamine 1000MCG/ML 250 ML IV SCH ×2 (00:17→18:29)
[2023-08-24 01:28] LABS: Alanine Aminotransferase 19 U/L (7-40); Albumin 3.3 g/dL (3.2-4.8); Alkaline Phosphatase 105 U/L (46-116); Anion Gap 4 (5-15); Aspartate Aminotransferase 25 U/L (13-40); BUN/Creatinine Ratio 16.9 (10.0-20.0); Bilirubin, Total 1.2 mg/dL (0.2-1.0); Blood Urea Nitrogen 10 mg/dL (9-23); Calcium 8.6 mg/dL (8.7-10.4); Carbon Dioxide 26 mmol/L (20-30); Chloride 93 mmol/L (98-107); Lipase 34 U/L (12-53); Potassium 3.5 mmol/L (3.5-5.1); Sodium 123 mmol/L (136-145); Total Protein 6.8 g/dL (5.7-8.2)
[2023-08-24 01:57] LABS: Glucose 87 mg/dL (74-106)
[2023-08-24 01:58] LABS: Amylase 21 U/L (30-118)
[2023-08-24 02:12] LABS: Basophils # (auto) 0 10 ^3/uL (0-0.2); Basophils % (auto) 0.1 % (0.0-2.0); Eosinophils # (auto) 0.1 10 ^3/uL (0-0.8); Eosinophils % (auto) 0.7 % (0.0-7.0); Hematocrit 36.3 % (41.0-53.0); Hemoglobin 12.3 g/dL (13.5-17.5); Lymphocytes # (auto) 2.9 10 ^3/uL (0.4-5.4); Lymphocytes % (auto) 22.4 % (10.0-50.0); Mean Corpuscular Hemoglobin 32.7 pg (28.0-32.0); Mean Corpuscular Volume 96.2 fL (80.0-100.0); Monocytes # (auto) 1.3 10 ^3/uL (0-1.3); Monocytes % (auto) 9.9 % (0.0-12.0); Neutrophils # (auto) 8.6 10 ^3/uL (1.6-8.6); Neutrophils % (auto) 66.9 % (37.0-80.0); Nucleated Red Blood Cells % 0.1 %; Red Blood Cells 3.77 10^6/uL (4.5-5.90); Red Cell Distribution Width 13.8 % (11.8-14.3); White Blood Cell 12.8 10^3/uL (4.4-10.8)
[2023-08-24] MEDS: InsuLIN REG 1unit/0.01ml Soln (100units/ml) SC SCH ×4 (06:07→21:13)
[2023-08-24] MEDS: ACCU-CHEK COMFORT CURVE STRIP VI SCH ×4 (06:07→21:13)
[2023-08-24] MEDS: METOPROLOL SUCCINATE XL 50 MG TAB PO SCH (09:44)
[2023-08-24] MEDS: DIGOXIN 0.125 MG TAB PO SCH (09:45)
[2023-08-24] MEDS: TAMSULOSIN HYDROCHLORIDE 0.4 MG CAP PO SCH (09:45)
[2023-08-24] MEDS: LEVOTHYROXINE SODIUM 25 MCG TAB PO SCH (09:45)
[2023-08-24] MEDS: POTASSIUM CHL 20 Meq TABLET PO SCH (09:45)
[2023-08-24] MEDS: FINASTERIDE 5 MG TAB PO SCH (09:46)
[2023-08-24] MEDS: TORSEMIDE 20 MG TAB PO SCH (09:46)
[2023-08-24] MEDS ORDERED: PATIENTS OWN MEDICATION PO SCH (10:00)
[2023-08-24] MEDS: buPROPion HCL 75 MG TAB PO SCH (10:00)
[2023-08-24] MEDS: TEMAZEPAM 15 MG CAP PO SCH (22:00)
[2023-08-25] VITALS (7 sets, daily range): BP systolic 94–107; BP diastolic 54–67; PULSE 74–79; RESP 14–18; TEMP 97.5–97.9; O2SAT 95–97
[2023-08-25] MEDS: ACCU-CHEK COMFORT CURVE STRIP VI SCH ×4 (06:01→23:26)
[2023-08-25] MEDS: InsuLIN REG 1unit/0.01ml Soln (100units/ml) SC SCH ×4 (06:02→23:26)
[2023-08-25] MEDS ORDERED: IODIXANOL 320MG/ML 100ML BTL IV ONE (09:53)
[2023-08-25] MEDS: TORSEMIDE 20 MG TAB PO SCH (11:10)
[2023-08-25] MEDS: LEVOTHYROXINE SODIUM 25 MCG TAB PO SCH (11:10)
[2023-08-25] MEDS: FINASTERIDE 5 MG TAB PO SCH (11:11)
[2023-08-25] MEDS: TAMSULOSIN HYDROCHLORIDE 0.4 MG CAP PO SCH (11:11)
[2023-08-25] MEDS: DIGOXIN 0.125 MG TAB PO SCH (11:11)
[2023-08-25] MEDS: buPROPion HCL 75 MG TAB PO SCH (11:11)
[2023-08-25] MEDS: POTASSIUM CHL 20 Meq TABLET PO SCH (11:11)
[2023-08-25] MEDS: METOPROLOL SUCCINATE XL 50 MG TAB PO SCH (11:12)
[2023-08-25] MEDS: DOBUTamine 1000MCG/ML 250 ML IV SCH (15:01)
[2023-08-25] MEDS: FUROSEMIDE INJECTION 100 MG in D5W 5% 100 ML IV SCH (16:04)
[2023-08-25] MEDS ORDERED: Ensure HIGH Protein Chocolate 8oz Bottle PO SCH (18:00)
[2023-08-25] MEDS: Glucerna Carbsteady SHAKE Vanilla 8oz PO SCH (18:56)
[2023-08-25] MEDS: TEMAZEPAM 15 MG CAP PO SCH (23:26)
[2023-08-26] VITALS (7 sets, daily range): BP systolic 99–127; BP diastolic 53–59; PULSE 75–78; RESP 14–18; TEMP 97.2–97.9; O2SAT 95–98
[2023-08-26] MEDS: FUROSEMIDE INJECTION 100 MG in D5W 5% 100 ML IV SCH ×3 (00:42→21:42)
[2023-08-26] MEDS: InsuLIN REG 1unit/0.01ml Soln (100units/ml) SC SCH ×4 (07:00→23:12)
[2023-08-26] MEDS: ACCU-CHEK COMFORT CURVE STRIP VI SCH ×4 (07:23→23:05)
[2023-08-26] MEDS: Glucerna Carbsteady SHAKE Vanilla 8oz PO SCH ×3 (09:16→18:37)
[2023-08-26] MEDS: DOBUTamine 1000MCG/ML 250 ML IV SCH (09:16)
[2023-08-26] MEDS: TAMSULOSIN HYDROCHLORIDE 0.4 MG CAP PO SCH (09:24)
[2023-08-26] MEDS: buPROPion HCL 75 MG TAB PO SCH (09:25)
[2023-08-26] MEDS: DIGOXIN 0.125 MG TAB PO SCH (09:25)
[2023-08-26] MEDS: LEVOTHYROXINE SODIUM 25 MCG TAB PO SCH (09:25)
[2023-08-26] MEDS: POTASSIUM CHL 20 Meq TABLET PO SCH (09:25)
[2023-08-26] MEDS: FINASTERIDE 5 MG TAB PO SCH (09:25)
[2023-08-26] MEDS: METOPROLOL SUCCINATE XL 50 MG TAB PO SCH (09:26)
[2023-08-26] MEDS: TEMAZEPAM 15 MG CAP PO SCH (23:04)
[2023-08-27] MEDS ORDERED: HALOPERIDOL LACTATE 5 MG/ML INJ VIAL IM PRN ×2 (01:15→17:45)
[2023-08-27 05:00] VITALS: BP 104/61; PULSE 76; RESP 17; TEMP 98.6; O2SAT 100
[2023-08-27 06:31] LABS: Chloride 96 mmol/L (98-107); Potassium 4.9 mmol/L (3.5-5.1)
[2023-08-27 06:32] LABS: Anion Gap 8 (5-15); Carbon Dioxide 24 mmol/L (20-30)
[2023-08-27 06:33] LABS: Calcium 9.1 mg/dL (8.7-10.4)
[2023-08-27] MEDS: DOBUTamine 1000MCG/ML 250 ML IV SCH ×2 (06:35→22:02)
[2023-08-27] MEDS: FUROSEMIDE INJECTION 100 MG in D5W 5% 100 ML IV SCH ×2 (06:35→16:25)
[2023-08-27] MEDS: InsuLIN REG 1unit/0.01ml Soln (100units/ml) SC SCH ×4 (06:36→22:00)
[2023-08-27] MEDS: ACCU-CHEK COMFORT CURVE STRIP VI SCH ×4 (06:36→22:00)
[2023-08-27 06:37] LABS: BUN/Creatinine Ratio 14.2 (10.0-20.0); Blood Urea Nitrogen 32 mg/dL (9-23); Glucose 109 mg/dL (74-106)
[2023-08-27 06:38] LABS: Sodium 128 mmol/L (136-145)
[2023-08-27 07:30] VITALS: PULSE 81
[2023-08-27 09:00] VITALS: BP_SYST 130; BP_SYST 142; BP_DIAS 42; BP_DIAS 77; PULSE 73; PULSE 97; RESP 17; RESP 18; O2SAT 92; O2SAT 93
[2023-08-27] MEDS: buPROPion HCL 75 MG TAB PO SCH (09:36)
[2023-08-27] MEDS: FINASTERIDE 5 MG TAB PO SCH (09:36)
[2023-08-27] MEDS: TAMSULOSIN HYDROCHLORIDE 0.4 MG CAP PO SCH (09:36)
[2023-08-27] MEDS: DIGOXIN 0.125 MG TAB PO SCH (09:36)
[2023-08-27] MEDS: LEVOTHYROXINE SODIUM 25 MCG TAB PO SCH (09:36)
[2023-08-27] MEDS: Glucerna Carbsteady SHAKE Vanilla 8oz PO SCH ×3 (09:37→17:28)
[2023-08-27] MEDS: METOPROLOL SUCCINATE XL 50 MG TAB PO SCH (09:37)
[2023-08-27] MEDS: POTASSIUM CHL 20 Meq TABLET PO SCH (10:00)
[2023-08-27] MEDS ORDERED: IODIXANOL 320MG/ML 100ML BTL IV ONE (10:58)
[2023-08-27 17:00] VITALS: PULSE 74; RESP 18; TEMP 98.2; O2SAT 93
[2023-08-27 20:00] VITALS: BP 103/63; PULSE 70; PULSE 75; PULSE 77; RESP 16; TEMP 36.8; O2SAT 98
[2023-08-27] MEDS: TEMAZEPAM 15 MG CAP PO SCH (21:47)
[2023-08-27 22:00] VITALS: BP 133/55; PULSE 77; RESP 18; TEMP 98.2; O2SAT 94
[2023-08-27] MEDS: TOBRAMYCIN SULF 0.3% OPTH(EYE) SOLN 5ML RIGHTEYE SCH (22:02)
[2023-08-28] VITALS (9 sets, daily range): BP systolic 87–126; BP diastolic 46–65; PULSE 62–78; RESP 16–20; TEMP 96.5–98.6; O2SAT 93–98
[2023-08-28] MEDS: TOBRAMYCIN SULF 0.3% OPTH(EYE) SOLN 5ML RIGHTEYE SCH ×6 (02:00→21:57)
[2023-08-28] MEDS: FUROSEMIDE INJECTION 100 MG in D5W 5% 100 ML IV SCH ×2 (02:15→12:15)
[2023-08-28] MEDS: InsuLIN REG 1unit/0.01ml Soln (100units/ml) SC SCH ×4 (07:00→22:17)
[2023-08-28] MEDS: ACCU-CHEK COMFORT CURVE STRIP VI SCH ×4 (07:00→22:17)
[2023-08-28] MEDS: Glucerna Carbsteady SHAKE Vanilla 8oz PO SCH ×3 (08:00→18:00)
[2023-08-28] MEDS: METOPROLOL SUCCINATE XL 50 MG TAB PO SCH (10:00)
[2023-08-28] MEDS: DIGOXIN 0.125 MG TAB PO SCH (10:00)
[2023-08-28] MEDS: LEVOTHYROXINE SODIUM 25 MCG TAB PO SCH (10:00)
[2023-08-28] MEDS: buPROPion HCL 75 MG TAB PO SCH (10:00)
[2023-08-28] MEDS: TAMSULOSIN HYDROCHLORIDE 0.4 MG CAP PO SCH (10:00)
[2023-08-28] MEDS: POTASSIUM CHL 20 Meq TABLET PO SCH (10:00)
[2023-08-28] MEDS: FINASTERIDE 5 MG TAB PO SCH (10:00)
[2023-08-28 12:32] LABS: Hematocrit 17.1 % (41.0-53.0); Mean Corpuscular Hemoglobin 38.7 pg (28.0-32.0); Mean Corpuscular Volume 110.6 fL (80.0-100.0); Red Blood Cells 1.54 10^6/uL (4.5-5.90)
[2023-08-28 12:39] LABS: White Blood Cell 1.5 10^3/uL (4.4-10.8)
[2023-08-28 12:40] LABS: Basophils % (manual) 0 (0.0-2.0); Blast Cells 0; Metamyelocytes % 0; Myelocytes % 0; Promyelocytes % 0; Reactive Lymphocytes 0
[2023-08-28 13:07] LABS: Band Neutrophils % (manual) 4; Eosinophils % (manual) 3 (0-7); Lymphocytes % (manual) 21 (10.0-50.0); Monocytes % (manual) 22 (0-12)
[2023-08-28 13:08] LABS: Anisocytosis Slight; Macrocytosis Moderate
[2023-08-28 13:09] LABS: Platelet Estimate Decreased
[2023-08-28 13:10] LABS: Rouleau Present; Tear Drop Cells FEW
[2023-08-28 13:15] LABS: Base Excess -1.1 mmol/L (-2.0-2.0)
[2023-08-28] MEDS: DOBUTamine 1000MCG/ML 250 ML IV SCH (16:58)
[2023-08-28] MEDS: TEMAZEPAM 15 MG CAP PO SCH (20:36)
[2023-08-29] VITALS (15 sets, daily range): BP systolic 81–108; BP diastolic 41–59; PULSE 68–81; RESP 15–20; TEMP 96.3–98.6; O2SAT 95–98
[2023-08-29] MEDS: TOBRAMYCIN SULF 0.3% OPTH(EYE) SOLN 5ML RIGHTEYE SCH ×6 (02:35→22:12)
[2023-08-29] MEDS: InsuLIN REG 1unit/0.01ml Soln (100units/ml) SC SCH ×4 (05:49→22:00)
[2023-08-29] MEDS: ACCU-CHEK COMFORT CURVE STRIP VI SCH ×4 (05:49→22:12)
[2023-08-29 06:34] LABS: Hematocrit 22.1 % (41.0-53.0); Hemoglobin 7.7 g/dL (13.5-17.5)
[2023-08-29 06:42] LABS: Alanine Aminotransferase 113 U/L (7-40); Alkaline Phosphatase 152 U/L (46-116); Anion Gap 9 (5-15); Calcium 8.8 mg/dL (8.7-10.4); Carbon Dioxide 24 mmol/L (20-30); Chloride 95 mmol/L (98-107); Potassium 4.7 mmol/L (3.5-5.1); Sodium 128 mmol/L (136-145)
[2023-08-29 06:43] LABS: Blood Urea Nitrogen 41 mg/dL (9-23); Glucose 110 mg/dL (74-106)
[2023-08-29 06:45] LABS: Albumin 3.1 g/dL (3.2-4.8); Aspartate Aminotransferase 109 U/L (13-40)
[2023-08-29 06:46] LABS: Bilirubin, Total 3.9 mg/dL (0.2-1.0); Total Protein 5.2 g/dL (5.7-8.2)
[2023-08-29] MEDS: Glucerna Carbsteady SHAKE Vanilla 8oz PO SCH ×3 (08:00→17:52)
[2023-08-29] MEDS: SODIUM CHLORIDE 0.9% 1,000 ML IV SCH ×2 (11:12→19:45)
[2023-08-29] MEDS: LEVOTHYROXINE SODIUM 25 MCG TAB PO SCH ×2 (11:13→11:29)
[2023-08-29] MEDS: FINASTERIDE 5 MG TAB PO SCH ×2 (11:13→11:29)
[2023-08-29] MEDS: DIGOXIN 0.125 MG TAB PO SCH ×2 (11:14→11:29)
[2023-08-29] MEDS: TAMSULOSIN HYDROCHLORIDE 0.4 MG CAP PO SCH ×2 (11:14→11:29)
[2023-08-29] MEDS: buPROPion HCL 75 MG TAB PO SCH (11:14)
[2023-08-29] MEDS: POTASSIUM CHL 20 Meq TABLET PO SCH ×2 (11:14→11:29)
[2023-08-29] MEDS: METOPROLOL SUCCINATE XL 50 MG TAB PO SCH (11:15)
[2023-08-29] MEDS: DOBUTamine 1000MCG/ML 250 ML IV SCH (12:34)
[2023-08-29] MEDS: TEMAZEPAM 15 MG CAP PO SCH (22:00)
[2023-08-30] VITALS (24 sets, daily range): BP systolic 96–116; BP diastolic 15–64; PULSE 75–91; RESP 14–20; TEMP 97.4–98; O2SAT 94–98
[2023-08-30] MEDS: TOBRAMYCIN SULF 0.3% OPTH(EYE) SOLN 5ML RIGHTEYE SCH ×6 (02:00→21:21)
[2023-08-30] MEDS: DOBUTamine 1000MCG/ML 250 ML IV SCH (05:44)
[2023-08-30] MEDS: InsuLIN REG 1unit/0.01ml Soln (100units/ml) SC SCH ×4 (06:04→21:24)
[2023-08-30] MEDS: ACCU-CHEK COMFORT CURVE STRIP VI SCH ×4 (06:04→21:23)
[2023-08-30] MEDS: SODIUM CHLORIDE 0.9% 1,000 ML IV SCH ×3 (06:04→23:39)
[2023-08-30] MEDS: Glucerna Carbsteady SHAKE Vanilla 8oz PO SCH ×3 (08:00→18:00)
[2023-08-30] MEDS: LEVOTHYROXINE SODIUM 25 MCG TAB PO SCH (09:55)
[2023-08-30] MEDS: DIGOXIN 0.125 MG TAB PO SCH (09:55)
[2023-08-30] MEDS: FINASTERIDE 5 MG TAB PO SCH (09:55)
[2023-08-30] MEDS: METOPROLOL SUCCINATE XL 50 MG TAB PO SCH (09:55)
[2023-08-30] MEDS: buPROPion HCL 75 MG TAB PO SCH (09:55)
[2023-08-30] MEDS: POTASSIUM CHL 20 Meq TABLET PO SCH (09:55)
[2023-08-30] MEDS: TAMSULOSIN HYDROCHLORIDE 0.4 MG CAP PO SCH (09:55)
[2023-08-30] MEDS: methylPREDNISolone SOD SUCC 125 MG/2 ML VL IV SCH ×2 (11:00→20:53)
[2023-08-30 11:23] LABS: Alanine Aminotransferase 92 U/L (7-40); Albumin 3.1 g/dL (3.2-4.8); Alkaline Phosphatase 130 U/L (46-116); Anion Gap 7 (5-15); Aspartate Aminotransferase 60 U/L (13-40); Blood Urea Nitrogen 44 mg/dL (9-23); Calcium 8.7 mg/dL (8.5-10.1); Carbon Dioxide 24 mmol/L (20-30); Chloride 98 mmol/L (98-107); Glucose 124 mg/dL (74-106); Potassium 4.6 mmol/L (3.5-5.1); Sodium 129 mmol/L (136-145)
[2023-08-30 11:24] LABS: Bilirubin, Total 4.3 mg/dL (0.2-1.0); Total Protein 5.1 g/dL (5.7-8.2)
[2023-08-30 11:49] LABS: INR 1.48 (0.9-1.15); Partial Thromboplastin Time 36.9 SEC (24.5-34.5); Prothrombin Time 15.1 sec (9.3-11.8)
[2023-08-30 12:10] LABS: Hematocrit 22.7 % (41.0-53.0); Mean Corpuscular Hemoglobin 36.8 pg (28.0-32.0); Mean Corpuscular Volume 105.1 fL (80.0-100.0); Red Blood Cells 2.16 10^6/uL (4.5-5.90); Red Cell Distribution Width 19.6 % (11.8-14.3)
[2023-08-30 13:13] LABS: White Blood Cell 1.6 10^3/uL (4.4-10.8)
[2023-08-30 13:15] LABS: Basophils % (manual) 0 (0.0-2.0); Blast Cells 0; Eosinophils % (manual) 0 (0-7); Metamyelocytes % 0; Myelocytes % 0; Promyelocytes % 0; Reactive Lymphocytes 0
[2023-08-30] MEDS ORDERED: methylPREDNISolone SOD SUCC 125 MG/2 ML VL IV ONE (14:00)
[2023-08-30 14:19] LABS: Band Neutrophils % (manual) 10; Lymphocytes % (manual) 26 (10.0-50.0); Macrocytosis Slight; Monocytes % (manual) 4 (0-12); Platelet Estimate Decreased
[2023-08-30] MEDS: TEMAZEPAM 15 MG CAP PO SCH (23:33)
[2023-08-31] VITALS (25 sets, daily range): BP systolic 88–112; BP diastolic 39–61; PULSE 75–159; RESP 10–29; TEMP 97.4–98.7; O2SAT 83–98
[2023-08-31] MEDS: DOBUTamine 1000MCG/ML 250 ML IV SCH ×2 (00:19→17:00)
[2023-08-31] MEDS: TOBRAMYCIN SULF 0.3% OPTH(EYE) SOLN 5ML RIGHTEYE SCH ×6 (02:51→23:23)
[2023-08-31] MEDS: methylPREDNISolone SOD SUCC 125 MG/2 ML VL IV SCH ×3 (03:26→21:29)
[2023-08-31 04:59] LABS: Hemoglobin 7.4 g/dL (13.5-17.5)
[2023-08-31 05:01] LABS: Hematocrit 21.3 % (41.0-53.0); Mean Corpuscular Hemoglobin 36.1 pg (28.0-32.0); Mean Corpuscular Hgb Conc. 34.7 g/dL (32.0-36.0); Mean Corpuscular Volume 104.1 fL (80.0-100.0); Red Blood Cells 2.04 10^6/uL (4.5-5.90); Red Cell Distribution Width 19.6 % (11.8-14.3)
[2023-08-31 05:21] LABS: White Blood Cell 1.5 10^3/uL (4.4-10.8)
[2023-08-31 05:23] LABS: Band Neutrophils % (manual) 0; Basophils % (manual) 0 (0.0-2.0); Blast Cells 0; Eosinophils % (manual) 0 (0-7); Metamyelocytes % 0; Myelocytes % 0; Promyelocytes % 0; Reactive Lymphocytes 0
[2023-08-31 05:34] LABS: Chloride 99 mmol/L (98-107); Potassium 4.9 mmol/L (3.5-5.1); Sodium 129 mmol/L (136-145)
[2023-08-31 05:35] LABS: Anion Gap 9 (5-15); Calcium 8.4 mg/dL (8.7-10.4); Carbon Dioxide 21 mmol/L (20-30)
[2023-08-31 05:40] LABS: BUN/Creatinine Ratio 8.7 (10.0-20.0); Blood Urea Nitrogen 48 mg/dL (9-23); Glucose 176 mg/dL (74-106)
[2023-08-31] MEDS: ACCU-CHEK COMFORT CURVE STRIP VI SCH ×4 (06:46→23:22)
[2023-08-31] MEDS: InsuLIN REG 1unit/0.01ml Soln (100units/ml) SC SCH ×4 (06:47→23:24)
[2023-08-31] MEDS: Glucerna Carbsteady SHAKE Vanilla 8oz PO SCH ×3 (08:00→19:00)
[2023-08-31 08:06] LABS: Lymphocytes % (manual) 4 (10.0-50.0); Monocytes % (manual) 6 (0-12)
[2023-08-31 08:07] LABS: Platelet Estimate Decreased
[2023-08-31] MEDS: TAMSULOSIN HYDROCHLORIDE 0.4 MG CAP PO SCH (10:00)
[2023-08-31] MEDS: LEVOTHYROXINE SODIUM 25 MCG TAB PO SCH (10:11)
[2023-08-31] MEDS: DIGOXIN 0.125 MG TAB PO SCH (10:11)
[2023-08-31] MEDS: buPROPion HCL 75 MG TAB PO SCH (10:12)
[2023-08-31] MEDS: FINASTERIDE 5 MG TAB PO SCH (10:12)
[2023-08-31] MEDS: METOPROLOL SUCCINATE XL 50 MG TAB PO SCH (10:12)
[2023-08-31] MEDS: POTASSIUM CHL 20 Meq TABLET PO SCH (10:12)
[2023-08-31] MEDS: SODIUM CHLORIDE 0.9% 1,000 ML IV SCH ×2 (11:45→21:29)
[2023-08-31] MEDS: FILGRASTIM(TBO) 480 MCG/0.8 ML SYRG SC SCH (17:48)
[2023-09-01] VITALS (15 sets, daily range): BP systolic 92–121; BP diastolic 54–68; PULSE 75–88; RESP 14–20; TEMP 97.6–98.3; O2SAT 90–100
[2023-09-01 02:07] LABS: Hemoglobin 7.6 g/dL (13.5-17.5); Mean Corpuscular Hgb Conc. 34.6 g/dL (32.0-36.0)
[2023-09-01 02:10] LABS: Mean Corpuscular Volume 104.1 fL (80.0-100.0); Red Blood Cells 2.11 10^6/uL (4.5-5.90); Red Cell Distribution Width 18.7 % (11.8-14.3)
[2023-09-01 02:14] LABS: Basophils % (manual) 0 (0.0-2.0); Blast Cells 0; Eosinophils % (manual) 0 (0-7); Metamyelocytes % 0; Myelocytes % 0; Promyelocytes % 0; Reactive Lymphocytes 0
[2023-09-01 02:34] LABS: Band Neutrophils % (manual) 6; Lymphocytes % (manual) 12 (10.0-50.0); Monocytes % (manual) 14 (0-12)
[2023-09-01 02:35] LABS: Platelet Estimate Decreased
[2023-09-01] MEDS: methylPREDNISolone SOD SUCC 125 MG/2 ML VL IV SCH ×3 (02:36→17:44)
[2023-09-01] MEDS: TOBRAMYCIN SULF 0.3% OPTH(EYE) SOLN 5ML RIGHTEYE SCH ×6 (02:36→22:31)
[2023-09-01 05:24] LABS: Mean Corpuscular Hemoglobin 35.9 pg (28.0-32.0); Mean Corpuscular Hgb Conc. 34.7 g/dL (32.0-36.0); Mean Corpuscular Volume 103.5 fL (80.0-100.0); Red Blood Cells 2.23 10^6/uL (4.5-5.90); Red Cell Distribution Width 19.2 % (11.8-14.3); White Blood Cell 4.9 10^3/uL (4.4-10.8)
[2023-09-01 05:34] LABS: Band Neutrophils % (manual) 0; Basophils % (manual) 0 (0.0-2.0); Blast Cells 0; Eosinophils % (manual) 0 (0-7); Metamyelocytes % 0; Promyelocytes % 0; Reactive Lymphocytes 0
[2023-09-01 05:37] LABS: Alanine Aminotransferase 72 U/L (7-40); Albumin 3.1 g/dL (3.2-4.8); Alkaline Phosphatase 119 U/L (46-116); Anion Gap 10 (5-15); Aspartate Aminotransferase 32 U/L (13-40); BUN/Creatinine Ratio 8.3 (10.0-20.0); Bilirubin, Total 3.8 mg/dL (0.2-1.0); Blood Urea Nitrogen 47 mg/dL (9-23); Calcium 8.3 mg/dL (8.5-10.1); Carbon Dioxide 19 mmol/L (20-30); Chloride 101 mmol/L (98-107); Glucose 146 mg/dL (74-106); Potassium 4.9 mmol/L (3.5-5.1); Sodium 130 mmol/L (136-145); Total Protein 5.2 g/dL (5.7-8.2)
[2023-09-01] MEDS: ACCU-CHEK COMFORT CURVE STRIP VI SCH ×4 (06:54→22:31)
[2023-09-01] MEDS: InsuLIN REG 1unit/0.01ml Soln (100units/ml) SC SCH ×4 (07:00→22:39)
[2023-09-01] MEDS: SODIUM CHLORIDE 0.9% 1,000 ML IV SCH (07:48)
[2023-09-01] MEDS: Glucerna Carbsteady SHAKE Vanilla 8oz PO SCH ×3 (08:00→17:41)
[2023-09-01 08:33] LABS: Lymphocytes % (manual) 4 (10.0-50.0); Monocytes % (manual) 7 (0-12); Myelocytes % 1
[2023-09-01 08:34] LABS: Platelet Estimate Decreased
[2023-09-01] MEDS: METOPROLOL SUCCINATE XL 50 MG TAB PO SCH (09:52)
[2023-09-01] MEDS: buPROPion HCL 75 MG TAB PO SCH (09:52)
[2023-09-01] MEDS: LEVOTHYROXINE SODIUM 25 MCG TAB PO SCH (09:52)
[2023-09-01] MEDS: TAMSULOSIN HYDROCHLORIDE 0.4 MG CAP PO SCH (09:52)
[2023-09-01] MEDS: FINASTERIDE 5 MG TAB PO SCH (09:52)
[2023-09-01] MEDS: FILGRASTIM(TBO) 480 MCG/0.8 ML SYRG SC SCH (11:20)
[2023-09-01] MEDS ORDERED: LEVOTHYROXINE SODIUM 25 MCG TAB PO SCH (11:24)
[2023-09-01] MEDS: DOBUTamine 1000MCG/ML 250 ML IV SCH (12:23)
[2023-09-01] MEDS: FUROSEMIDE INJECTION 100 MG in SODIUM CHL 0.9% 100 ML IV SCH ×2 (12:29→22:31)
[2023-09-01 13:12] LABS: Urine Bacteria NONE SEEN /hpf (None Seen); Urine Blood 3+ /uL (Negative); Urine Clarity CLOUDY (Clear); Urine Color Brown (Yellow); Urine Protein, UAD 2+ (Negative); Urine Specific Gravity 1.026 (1.001-1.035); Urine Urobilinogen Normal (Negative); Urine WBC 389 /hpf (0 - 3); Urine WBC Clumps PRESENT /hpf (None Seen); Urine pH 5.5 (5.0-8.0)
[2023-09-01 13:39] LABS: Protein, Urine 182.6 mg/dL (0.0-11.9)
[2023-09-01 13:41] LABS: Creatinine, Urine 118.38 mg/dL (30.0-125.0)
[2023-09-02] VITALS (12 sets, daily range): BP systolic 101–118; BP diastolic 54–65; PULSE 75–85; RESP 14–22; TEMP 97.7–98.3; O2SAT 97–100
[2023-09-02] MEDS: TOBRAMYCIN SULF 0.3% OPTH(EYE) SOLN 5ML RIGHTEYE SCH ×6 (03:42→21:56)
[2023-09-02] MEDS: methylPREDNISolone SOD SUCC 125 MG/2 ML VL IV SCH ×2 (03:42→10:16)
[2023-09-02 05:17] LABS: Hematocrit 21.3 % (41.0-53.0); Hemoglobin 7.5 g/dL (13.5-17.5)
[2023-09-02 05:19] LABS: Mean Corpuscular Hemoglobin 36.7 pg (28.0-32.0); Mean Corpuscular Hgb Conc. 35.2 g/dL (32.0-36.0); Mean Corpuscular Volume 104.2 fL (80.0-100.0); Red Blood Cells 2.05 10^6/uL (4.5-5.90); Red Cell Distribution Width 19.5 % (11.8-14.3); White Blood Cell 8.5 10^3/uL (4.4-10.8)
[2023-09-02 05:27] LABS: Anion Gap 10 (5-15); Basophils % (manual) 0 (0.0-2.0); Blast Cells 0; Calcium 8.4 mg/dL (8.7-10.4); Carbon Dioxide 20 mmol/L (20-30); Chloride 101 mmol/L (98-107); Eosinophils % (manual) 0 (0-7); Myelocytes % 0; Potassium 5.1 mmol/L (3.5-5.1); Promyelocytes % 0; Reactive Lymphocytes 0; Sodium 131 mmol/L (136-145)
[2023-09-02 05:33] LABS: BUN/Creatinine Ratio 9.3 (10.0-20.0); Glucose 140 mg/dL (74-106)
[2023-09-02 05:35] LABS: Phosphorus 3.3 mg/dL (2.4-5.1)
[2023-09-02 05:40] LABS: Blood Urea Nitrogen 57 mg/dL (9-23)
[2023-09-02] MEDS: ACCU-CHEK COMFORT CURVE STRIP VI SCH ×5 (06:50→23:51)
[2023-09-02] MEDS: InsuLIN REG 1unit/0.01ml Soln (100units/ml) SC SCH ×4 (06:51→23:55)
[2023-09-02] MEDS: LEVOTHYROXINE SODIUM 25 MCG TAB PO SCH (06:52)
[2023-09-02] MEDS: FUROSEMIDE INJECTION 100 MG in SODIUM CHL 0.9% 100 ML IV SCH (07:01)
[2023-09-02] MEDS: DOBUTamine 1000MCG/ML 250 ML IV SCH (07:02)
[2023-09-02] MEDS: buPROPion HCL 75 MG TAB PO SCH (07:51)
[2023-09-02] MEDS: METOPROLOL SUCCINATE XL 50 MG TAB PO SCH (07:51)
[2023-09-02] MEDS: Glucerna Carbsteady SHAKE Vanilla 8oz PO SCH ×3 (07:52→18:40)
[2023-09-02 08:36] LABS: Band Neutrophils % (manual) 15; Lymphocytes % (manual) 2 (10.0-50.0); Macrocytosis Slight; Metamyelocytes % 2; Monocytes % (manual) 5 (0-12); Platelet Estimate Decreased
[2023-09-02] MEDS: FILGRASTIM(TBO) 480 MCG/0.8 ML SYRG SC SCH (10:17)
[2023-09-02] MEDS ORDERED: DEXTROSE (50%) 50ML SYRG IV PRN (11:00)
[2023-09-02] MEDS: SODIUM CHLORIDE 0.9% 1,000 ML IV SCH (11:00)
[2023-09-02] MEDS: FINASTERIDE 5 MG TAB PO SCH (20:34)
[2023-09-02] MEDS: TAMSULOSIN HYDROCHLORIDE 0.4 MG CAP PO SCH (21:56)
[2023-09-03] VITALS: RESP 18; O2SAT 96
[2023-09-03] MEDS: TOBRAMYCIN SULF 0.3% OPTH(EYE) SOLN 5ML RIGHTEYE SCH ×3 (01:57→09:32)
[2023-09-03 04:00] VITALS: RESP 18; O2SAT 97
[2023-09-03 05:00] VITALS: BP 106/43; PULSE 79; RESP 20; TEMP 97.5; O2SAT 97
[2023-09-03] MEDS: InsuLIN REG 1unit/0.01ml Soln (100units/ml) SC SCH ×2 (06:06→12:00)
[2023-09-03] MEDS: ACCU-CHEK COMFORT CURVE STRIP VI SCH ×2 (06:08→13:20)
[2023-09-03] MEDS: LEVOTHYROXINE SODIUM 25 MCG TAB PO SCH (06:09)
[2023-09-03] MEDS: SODIUM CHLORIDE 0.9% 1,000 ML IV SCH (06:13)
[2023-09-03 06:34] LABS: Chloride 102 mmol/L (98-107); Potassium 5.4 mmol/L (3.5-5.1); Sodium 132 mmol/L (136-145)
[2023-09-03 06:35] LABS: Anion Gap 11 (5-15); Calcium 8.6 mg/dL (8.7-10.4); Carbon Dioxide 19 mmol/L (20-30)
[2023-09-03 06:40] LABS: Blood Urea Nitrogen 52 mg/dL (9-23); Glucose 141 mg/dL (74-106)
[2023-09-03 07:04] LABS: BUN/Creatinine Ratio 9.4 (10.0-20.0)
[2023-09-03 08:00] VITALS: PULSE 85; RESP 18
[2023-09-03 08:30] VITALS: BP 110/67; PULSE 75; RESP 22; TEMP 97.5; O2SAT 100
[2023-09-03] MEDS: TAMSULOSIN HYDROCHLORIDE 0.4 MG CAP PO SCH (09:32)
[2023-09-03] MEDS: FINASTERIDE 5 MG TAB PO SCH (09:32)
[2023-09-03] MEDS: Glucerna Carbsteady SHAKE Vanilla 8oz PO SCH ×2 (09:32→12:00)
[2023-09-03] MEDS: FILGRASTIM(TBO) 480 MCG/0.8 ML SYRG SC SCH (09:33)
== END 2023-09-03 13:15 | disposition hospice, home (50) | DRG 432 ==
LOC: CENTRAL 08-23 18:22 → TELE-WESTW 08-23 18:47 → DOU IN ICU 08-30 12:05 → TELE-WESTW 09-02 12:50
PROVIDERS: ADMIT Internal Medicine Cardiovascular Disease; ATTEND Internal Medicine Cardiovascular Disease
PROC: 30233N1 Transfusion of Nonautologous Red Blood Cells into Peripheral Vein, Percutaneous Approach (ICD-10-PCS; principal; 2023-08-28)
PROC: 30233R1 Transfusion of Nonautologous Platelets into Peripheral Vein, Percutaneous Approach (ICD-10-PCS; 2023-08-30)
DX: K74.60 Unspecified cirrhosis of liver (principal); I50.23 Acute on chronic systolic (congestive) heart failure; I13.0 Hypertensive heart and chronic kidney disease with heart failure and stage 1 through stage 4 chronic kidney disease, or unspecified chronic kidney disease; D61.818 Other pancytopenia; D68.59 Other primary thrombophilia; E87.1 Hypo-osmolality and hyponatremia; D69.3 Immune thrombocytopenic purpura; K72.90 Hepatic failure, unspecified without coma; D72.829 Elevated white blood cell count, unspecified; E03.9 Hypothyroidism, unspecified; E11.22 Type 2 diabetes mellitus with diabetic chronic kidney disease; F01.50 Vascular dementia, unspecified severity, without behavioral disturbance, psychotic disturbance, mood disturbance, and anxiety; I25.5 Ischemic cardiomyopathy; I48.91 Unspecified atrial fibrillation; I69.318 Other symptoms and signs involving cognitive functions following cerebral infarction; N18.30 Chronic kidney disease, stage 3 unspecified; N39.41 Urge incontinence; I95.9 Hypotension, unspecified; N40.1 Benign prostatic hyperplasia with lower urinary tract symptoms; I25.10 Atherosclerotic heart disease of native coronary artery without angina pectoris; R31.0 Gross hematuria; Z95.810 Presence of automatic (implantable) cardiac defibrillator; Z95.1 Presence of aortocoronary bypass graft; Z83.3 Family history of diabetes mellitus; Z82.49 Family history of ischemic heart disease and other diseases of the circulatory system; Z88.0 Allergy status to penicillin; Z79.899 Other long term (current) drug therapy
CPT/HCPCS: 36415; 36600; 74177; 80048; 80053; 80162; 81001; 82140; 82150; 82248; 82306; 82570; 82805; 82962; 83010; 83615; 83690; 83735; 83880; 83970; 84100; 84156; 84300; 85007; 85014; 85018; 85025; 85027; 85045; 85610; 85730; 86850; 86880; 86900; 86901; 86920; 87081; 92610; 93005; 97110; 97116; 97163; 97530; G0378; J1447; J1815; J7060; Q9967